=== PATIENT | male | born 1980 | race Caucasian/White ===

== ENCOUNTER 2016-10-14 13:18 | Emergency (ER) | payer MEDICARE, MEDICAID ==
--- NOTE | 2016-10-14 14:19 | Diagnostic Imaging Report ---
Right hand 3 views Indication: Pain rule out fracture Comparison: none Findings: No evidence of an acute fracture or significant focal soft tissue swelling. No dislocation. Impression: No evidence of an acute fracture. In the setting of trauma, if clinical symptoms persist and there is continued concern for an occult fracture, follow up exams in 5-7 days is suggested.
--- NOTE | 2016-10-14 14:28 | ED Physician Chart ---
Chief Complaint/HPI - Patient Information Date Seen:: 10/14/16 Time Seen:: 14:25 Chief Complaint:: finger injury History of Present Illness:: pt says he injured rt 4th finger yesterday when disassembling a tarp tent. says he hyperextended the finger. its been sore since and seems limited rom 2nd pain. sensation ok. color ok. no swelling. no fever. no claudette pmh x hip sx yrs ago. no other pain or injury... motrin does not relieve pain Allergies:: Allergies Allergy/AdvReac Type Severity Reaction Status Date / Time meperidine [From Demerol] AdvReac Verified 07/17/16 11:47 Vitals:: Vital Signs - 8 hr 10/14/16 13:36 Temp 96.9 F HR 91 RR 16 BP 228/62 O2 Sat % 98 Historian:: Patient Review of Systems - Review of Systems General/Constitutional: No fever, No chills, No weight loss, No weakness, No diaphoresis, No edema, No loss of appetite Skin: No skin lesions, No rash, No bruising Head: No headache, No light-headedness Eyes: No loss of vision, No pain, No diplopia ENT: No earache, No nasal drainage, No sore throat, No tinnitus Neck: No neck pain, No swelling, No thyromegaly, No stiffness, No mass noted Cardio Vascular: No chest pain, No palpitations, No PND, No orthopnea, No edema Pulmonary: No SOB, No cough, No sputum, No wheezing GI: No nausea, No vomiting, No diarrhea, No pain, No melena, No hematochezia, No constipation, No hematemesis G/U: No dysuria, No frequency, No hematuria Musculoskeletal: Bone or joint pain, No back pain, No muscle pain Endocrine: No polyuria, No polydipsia Psychiatric: No prior psych history, No depression, No anxiety, No suicidal ideation Hematopoietic: No bruising, No lymphadenopathy Allergic/Immuno: No urticaria, No angioedema Neurological: No syncope, No focal symptoms, No weakness, No paresthesia, No headache, No seizure, No dizziness, No confusion, No vertigo Past Medical History - Past Medical History Past Medical History: Other (hip sx) Social History: No Alcohol Surgical History: HIP Medication: Reviewed Family Medical History - Family Member Father History Unknown: Yes Ethnicity: Living Status: Still Living Hx Family Cancer: No Hx Family Coronary Artery Disease: No Hx Family Congestive Heart Failure: No Hx Family Hypertension: Yes Hx Family Stroke: No Hx Family Diabetes: Yes Physical Exam - Physical Examination General/Constitutional: Awake, Well-developed, well-nourished, Alert, No distress, GCS 15, Non-toxic appearing, Ambulatory Head: Atraumatic Eyes: Lids, conjuctiva normal, PERRL, EOMI Skin: Nl inspection, No rash, No skin lesions, No ecchymosis, Well hydrated, No lymphadenopathy ENMT: External ears, nose nl, Nasal exam nl, Lips, teeth, gums nl Neck: Nontender, Full ROM w/o pain, No JVD, No nuchal rigidity, No bruit, No mass, No stridor Respiratory: Nl effort/Exclusion, Clear to Auscultation, No Wheeze/Rhonchi/Rales Cardio Vascular: RRR, No murmur, gallop, rubs, NL S1 S2 GI: No tenderness/rebounding/guarding, No organomegaly, No hernia, Normal BS's, Nondistended, No mass/bruits, No McBurney tenderness : No CVA tenderness Extremities: No tenderness or effusion, Full ROM, normal strength in all extremities, No edema, Normal digits & nails Other Extremities comments:: rt 4th finger nrml appearance. no edema, cap refill brisk. tndr at base of prox 4th carpl bone and at mc head region. no hand edema. Neuro/Psych: Alert/oriented, DTR's symmetric, Normal sensory exam, Normal motor strength, Judgement/insight normal, Mood normal, Normal gait, No focal deficits Misc: normal gait, Normal back, No paraspinal tenderness Labs/Radiology/EKG Results - Radiology Results Results: xray rt hand read as nrml by rad , no fx. ED Septic Shock - . Is Septic Shock (SBP<90, OR Lactate>4 mmol\L) present?: No - <6hrs of presentation: Vital Signs: Vital Signs - 8 hr 10/14/16 13:36 Temp 96.9 F HR 91 RR 16 BP 228/62 O2 Sat % 98 Reassessment (Disposition) - Reassessment Reassessment:: splint applied. rx ultracet 12 see pmd in next week for rechk. ret if worse.. Reassessment Condition:: Improved - Diagnosis Diagnosis:: sprain rt 4th finger - Aftercare/Follow up Instructions Aftercare/Follow-Up Instructions:: Counseled pt regarding lab results/diagnosis & need follow up - Patient Disposition Discharge/Transfer:: Home Condition at Disposition:: Improved
== END 2016-10-14 14:57 | disposition home or self-care (01) ==
LOC: ER 13:18
DX: S63.614A Unspecified sprain of right ring finger, initial encounter (principal); Z88.6 Allergy status to analgesic agent; X58.XXXA Exposure to other specified factors, initial encounter; Y93.89 Activity, other specified; Y92.89 Other specified places as the place of occurrence of the external cause; Y99.8 Other external cause status
CPT/HCPCS: 73130-TC-RT; Z7502

== ENCOUNTER 2017-05-20 18:37 | Emergency (ER) | payer MEDICARE, MEDICAID ==
--- NOTE | 2017-05-20 19:13 | ED Physician Chart ---
ED Chief Complaint/HPI - Patient Information Date Seen:: 05/20/17 Time Seen:: 19:05 Chief Complaint:: pain base of left large toe History of Present Illness:: Patient had onset 2 days ago pain at the base of his left large toe. Pain has increased since this morning. He denies trauma. Patient has had upper respiratory tract symptoms for the last 2 days, Allergies:: Allergies Allergy/AdvReac Type Severity Reaction Status Date / Time meperidine [From Demerol] AdvReac Verified 07/17/16 11:47 Vitals:: Vital Signs - 8 hr 05/20/17 05/20/17 18:51 19:01 Temp 98 F 98.0 F HR 81 81 RR 16 18 BP 132/77 132/77 O2 Sat % 100 Historian:: Patient Review:: Nurse's Note Reviewed ED Review of Systems - Review of Systems General/Constitutional: No fever, No chills Skin: No skin lesions Head: No headache Eyes: No loss of vision ENT: No earache Neck: No neck pain Cardio Vascular: No chest pain, No palpitations Pulmonary: No SOB GI: No nausea, No vomiting, No diarrhea G/U: No dysuria Musculoskeletal: Bone or joint pain, No back pain, No muscle pain Psychiatric: No prior psych history, No depression Hematopoietic: No bruising Neurological: Syncope ED Past Medical History - Past Medical History Past Medical History: No significant medical hx Family History: Diabetes Melitus, HTN Social History: Non Smoker, No Alcohol Surgical History: other (compound fracture right tib-fib) Psychiatricy History: None Medication: Reviewed Family Medical History - Family Member Father History Unknown: Yes Ethnicity: Living Status: Still Living Hx Family Cancer: No Hx Family Coronary Artery Disease: No Hx Family Congestive Heart Failure: No Hx Family Hypertension: Yes Hx Family Stroke: No Hx Family Diabetes: Yes ED Physical Exam - Physical Examination General/Constitutional: Well-developed, well-nourished, Alert, No distress Head: Atraumatic Eyes: Lids, conjuctiva normal, PERRL Skin: Nl inspection, No rash, No skin lesions, No ecchymosis ENMT: External ears, nose nl, TM canals nl Neck: No nuchal rigidity Respiratory: Nl effort/Exclusion, Clear to Auscultation, No Wheeze/Rhonchi/Rales Cardio Vascular: RRR, No murmur, gallop, rubs GI: No tenderness/rebounding/guarding, No organomegaly : No CVA tenderness Other Extremities comments:: Left large toe: There is tenderness and mild redness and mild swelling centered over the base of the left large toe. Flexion and extension of the left large toe with no to minimal pain. Neuro/Psych: Alert/oriented, No focal deficits Misc: Normal back ED Labs/Radiology/EKG Results - Radiology Results Results: Laboratory Results - last 24 hr 05/20/17 19:14 Uric Acid 6.7 ED Assessment - Assessment General Assessment: Patient could have calcium oxalate crystal deposition (not uric acid) at the proximal interphalangeal joint of the left large toe. Suggested to patient he take 800 mg of [id number] ibuprofen 3 times a day for one week only. ED Septic Shock - . Is Septic Shock (SBP<90, OR Lactate>4 mmol\L) present?: No - <6hrs of presentation: Vital Signs: Vital Signs - 8 hr 05/20/17 05/20/17 18:51 19:01 Temp 98 F 98.0 F HR 81 81 RR 16 18 BP 132/77 132/77 O2 Sat % 100 ED Reassessment (Disposition) - Reassessment Reassessment Condition:: Unchanged - Diagnosis Diagnosis:: Crystal deposition base of left large toe - Aftercare/Follow up Instructions Aftercare/Follow-Up Instructions:: Refer to Discharge Instructions - Patient Disposition Discharge/Transfer:: Home Condition at Disposition:: Stable, Unchanged
== END 2017-05-20 21:00 | disposition home or self-care (01) ==
LOC: ER 18:37
DX: M25.872 Other specified joint disorders, left ankle and foot (principal)
CPT/HCPCS: 99283; 96372; 36415; 84550; J1885; Z7502